=== PATIENT | female | born 1990 | race Caucasian/White ===

== ENCOUNTER 2016-12-03 21:20 | Emergency (ER) | payer MEDICAID ==
[2010-05-04 15:50] VITALS: BMI 26.0
[2016-12-03 22:20] LABS: BASOPHILS 0.1 % (0-2); EOSINOPHILS 0.3 % (0-7); HEMATOCRIT 39.1 % (36.0-48.0); HEMOGLOBIN 13.1 g/dL (12-16); IMMATURE GRANULOCYTES 0.1 % (0-5); LYMPHOCYTES 6.8 % (15-50); MCH 28.7 pg (26.0-34.0); MCHC 33.5 g/dL (31.0-37.0); MCV 85.7 fL (80.0-100.0); MONOCYTES 6.5 % (2-11); NEUTROPHILS 86.2 % (40-80); PLATELET COUNT 212 10x3/uL (130-400); RBC 4.56 10x6/uL (4.00-5.40); RDW 13.3 % (11.5-14.5); WBC 7.1 10x3/uL (4.8-10.8)
[2016-12-03 22:31] LABS: ALBUMIN 4.2 g/dL (3.4-5.0); ALKALINE PHOSPHATASE 55 U/L (46-116); ALT (SGPT) 17 U/L (10-68); CALC OSMOLALITY 277 mosm/kg (275-300); CALCIUM 9.1 mg/dL (8.5-10.1); CHLORIDE - SERUM 107 mmol/L (98-107); CREATININE - SERUM 0.7 mg/dL (0.6-1.3); GLUCOSE 93 mg/dL (74-106); POTASSIUM - SERUM 3.6 mmol/L (3.5-5.1); PROTEIN - SERUM 7.1 g/dL (6.4-8.2); SODIUM 140 mmol/L (136-145); UREA NITROGEN 9 mg/dL (7-18); eGFR NON AFRICAN AMERICAN > 90 mL/min (90-120)
[2016-12-04 00:10] LABS: HCG URINE NEGATIVE (NEGATIVE)
[2016-12-04 00:11] LABS: APPEARANCE SLT CLOUDY (CLEAR); BILIRUBIN NEGATIVE (NEGATIVE); COLOR YELLOW (YELLOW); GLUCOSE NEGATIVE (NEGATIVE); KETONE MODERATE mg/dL (NEGATIVE); LEUKOCYTE ESTERASE TRACE (NEGATIVE); NITRITE POSITIVE (NEGATIVE); PROTEIN NEGATIVE (NEGATIVE); UROBILINOGEN NORMAL (NORMAL)
[2016-12-04 00:12] LABS: BACTERIA MANY /hpf (NONE SEEN); EPITHELIAL CELLS 0-5 /hpf (0-5); RED CELLS - URINE NONE SEEN /hpf (0-5); WHITE CELLS - URINE 0-5 /hpf (0-5)
== END 2016-12-04 00:52 | disposition home or self-care (01) ==
LOC: D.ER 21:20
PROVIDERS: Emergency Medicine; Nurse Practitioner Acute Care
DX: N39.0 Urinary tract infection, site not specified (principal); F17.200 Nicotine dependence, unspecified, uncomplicated

== ENCOUNTER 2018-08-04 17:38 | Emergency (ER) | payer MEDICAID ==
[~2018-08-04] VITALS: Ht 165.1 cm; Wt 59.1 kg
[2018-08-04 17:48] VITALS: BP 134/100; Ht 165.1 cm; Wt 59.1 kg
[2018-08-04] MEDS ORDERED: PERCOCET 7.5/321 TAB (17:50)
[2018-08-04] MEDS ORDERED: KLONOPIN0.5 MG PO (17:50)
== END 2018-08-04 19:43 | disposition home or self-care (01) ==
LOC: D.ER 17:38
DX: R10.9 Unspecified abdominal pain (principal)

== ENCOUNTER 2020-08-04 02:56 | Emergency (ER) | payer MEDICAID ==
[~2020-08-04] VITALS: Ht 165.1 cm; Wt 56.7 kg
[~2020-08-04 02:56] MED LIST: AMBIEN10 MG PO; KLONOPIN0.5 MG PO; PERCOCET 7.5/321 TAB; SINEQUAN25 MG PO; TRILEPTAL300 MG PO; VISTARIL25 MG PO; ZOFRAN ODT4 MG/UDTAB PO
[2020-08-04 02:59] VITALS: Ht 165.1 cm; Wt 56.7 kg
[2020-08-04 03:22] VITALS: BP 148/99
== END 2020-08-04 03:22 | disposition home or self-care (01) ==
LOC: D.ER 02:56
DX: R51.9 Headache, unspecified (principal); F07.81 Postconcussional syndrome